=== PATIENT | female | born 1950 | race Caucasian/White ===

== ENCOUNTER 2023-06-04 14:33 | Emergency (ER) | payer MEDICARE, OTHER, SELFPAY ==
[2023-06-04 14:42] VITALS: BP 183/109
--- NOTE | 2023-06-04 15:18 | ED.GENMED ---
History of Present Illness
General
Chief Complaint: Head Injury
Source: patient
Exam Limitations: none
Time Seen by Provider: 06/04/23 15:03
Nursing documentation reviewed up to this point in time: agreed with
Travel History
Have you had any contact with someone who has COVID-19?: No
Do you have any symptoms of coronavirus? Fever > 100 degrees, chills, cough, shortness of breath, sore throat, loss of taste or smell, muscle aches, or headache?: No
History of Present Illness
History of Present Illness:
Patient is a 72-year-old who presents to the ER for evaluation of fall. Patient reports she was putting a vacuum away when she tripped on her downstairs step and fell landing on a wood floor. She hit the left side of her head. She denies loss of
consciousness. She got herself up. She complains of soreness to left forehead. She reports she recently had cervical laminectomy last surgery was February neck feels sore but denies any actual pain. She has chronic numbness and tingling to
fingers and toes this is not new. She is on Darleen aspirin once a day no other blood thinners. She denies any nausea vomiting. She denies any other upper or lower extremity pain/injury.
Past History
Past History
ED Past Medical History: Cancer (Breast), HTN, Hypercholesterolemia, Valvular disease and Other (Arthritis, retinal detachment)
ED Past Surgical History: Cardiac, (X4, and D&C in 1986) and Orthopedic (History laminectomy October 2012. Chronic back pain. Office 2012 had a discectomy and developed abscess and sepsis. She's had a left shoulder replacement, left knee
replacement. Is scheduled for a right knee replacement. She has to have her right shoulder replaced.)
Social History
Tobacco: Former smoker
Alcohol: None
Personal:
Living: with family
Employment: Not employed
Review of Systems
Review of Systems
Allergies reviewed?: Yes
All Other Systems: ROS reviewed and negative except as documented in HPI and ROS
Constitutional: Reports no symptoms; Denies fever, fatigue or chills
EENT: Reports no symptoms
Respiratory: Reports no symptoms
Cardiac: Reports no symptoms
ABD/GI: Reports no symptoms; Denies nausea or vomiting
Musculoskeletal: Reports neck pain
Skin: Reports no symptoms
Neurological: Reports other (sore to left forehead ); Denies headache
Hematologic/Lymphatic: Reports no symptoms
Psychiatric: Reports no symptoms
Phy Exam
General Physical Exam
General Presentation: no apparent distress
General age: appears stated age
General Skin: warm and dry
General Habitus: normal
General Mental: alert
General Hydration: appears well hydrated
Eye Exam
Eye Exam: PERRL, EOMI and other (No bony orbital tenderness no step-offs or crepitus)
Eye Exam General: PERRL: bilateral and EOM intact: bilateral
Pupil Exam: Bilateral: round and reactive
Neurological Exam
Neurological Exam: alert, oriented x3 and other (ambulatory steady gait )
Musculoskeletal Exam
Musculoskeletal Exam: full ROM and other (Left forehead hematoma, posterior surgical scar, old appearing to neck no bony cervical spine midline tenderness full range of motion upper lower extremities)
Skin Exam
Skin Exam: normal color and warm/dry
Course
Orders/Labs/Results
Orders:
Orders
06/04/23 15:16
CT Head W/o Iv Contrast Urgent
Comment:
Reason For Exam: FALL left forehead hematoma
06/04/23 15:17
CT Cervical Spine W/o Iv Contr Urgent
Comment:
Reason For Exam: trauma
Vital Signs
Initial and Last Documented VS:
Initial Vital Signs
Temp Pulse Resp BP Pulse Ox
98.2 F 96 20 183/109 100
06/04/23 14:42 06/04/23 14:42 06/04/23 14:42 06/04/23 14:42 06/04/23 14:42
Last Documented Vital Signs
Temp Pulse Resp BP Pulse Ox
98.2 F 96 20 183/109 100
06/04/23 14:42 06/04/23 14:42 06/04/23 14:42 06/04/23 14:42 06/04/23 14:42
MDM/Problems Addressed
Differential Diagnosis Includes:
Not limited to intracranial hemorrhage, skull fracture, hematoma contusion cervical strain less likely fracture
MDM/Problems Addressed:
Symptoms are consistent with frontal forehead hematoma, head injury. Patient is not on blood thinners no loss of consciousness CT head and cervical spine unremarkable. Patient has chronic degenerative changes in cervical spine and postoperative
findings s/p posterior laminectomy.
Chronic conditions affecting care:
Posterior laminectomy
*Radiology
Radiology exam reviewed: radiology read reviewed
*Pulse Oximetry
Patient hypoxic: no
*Critical Care Note
Total Time (30-74mins, 75-104mins- exclusive of procedures): Not Applicable
ED Attending Note
-
Portions of this chart may have been created with voice recognition software.� Occasional wrong word or��sound alike� substitutions may have occurred due to the inherent limitations of voice recognition software.
Discharge Plan
Departure
Patient Disposition: Home (Routine Discharge)
Date of Disposition: 06/04/23
Time of Disposition: 17:15
Patient with high blood pressure during this ER visit?: Yes
Condition: Fair
Covid-19: Not Applicable
Discharge Problem:
Head injury, Hematoma
Instructions: Head Injury in Adults (DC), Contusion (DC), BLOOD PRESSURE
Prescriptions:
No Action
levothyroxine 100 MCG tablet
100 mcg PO DAILY AT 0700
zinc 50 mg Tablet
50 mg PO DAILY Qty: 0
omeprazole magnesium [Prilosec OTC] 20 MG tablet,delayed release (DR/EC)
20 mg PO DAILY
ICaps AREDS [id number] Capsule
1 cap PO DAILY Qty: 0
ascorbic acid (vitamin C) [Vitamin C] 1,000 MG tablet
1,000 mg PO DAILY
amitriptyline 10 MG tablet
10 mg PO HS
lorazepam [Ativan] 0.5 mg Tablet
0.5 mg PO 5/D PRN (Reason: anxiety )
Rx Instructions:
pt states that she can have it 5 times a day
aspirin 81 mg Tablet,Delayed Release (Dr/Ec)
81 mg PO DAILY
amitriptyline 50 mg tablet
50 mg PO HS
amlodipine [Norvasc] 10 mg Tablet
10 mg PO DAILY
acetaminophen 325 MG tablet
650 mg PO Q4HPRN PRN (Reason: HEADACHES)
omega-3 fatty acids Capsule
PO
Rx Instructions:
unk mg
turmeric 400 mg Capsule
400 mg PO DAILY
Rx Instructions:
unk mg
quercetin 500 mg Capsule
500 mg PO DAILY
Rx Instructions:
unk mg
atorvastatin 20 mg Tablet
40 mg PO QPM Qty: 30 0RF
clopidogrel 75 mg Tablet
75 mg PO DAILY Qty: 20 0RF
Referrals:
Ginny Salmeron MD [Family Provider] -
Activity Restrictions/Additional Instructions:
Ice affected area for first 24 hours at times of time several times a day. Follow-up with family doctor in the next 2 days for reevaluation. Return if any worsening of symptoms. You may alternate between ibuprofen and Tylenol as needed
Interventions
Interventions:
*Risk Screen - Suicide Last Done: 06/04/23 16:55
*General Assessment Last Done: 06/04/23 16:55
*Neglect/Abuse Screening Last Done: 06/04/23 16:55
ED- Neurological Assessment Last Done: 06/04/23 16:55
ED-Skin Assessment Last Done: 06/04/23 16:56
[2023-06-04 17:22] VITALS: BP 185/105
== END 2023-06-04 17:30 | disposition home or self-care (01) ==
LOC: EMR 14:33
PROVIDERS: EMERGENCY PHYSICIAN Emergency Medicine; FAMILY PHYSICIAN Internal Medicine
DX: S00.03XA Contusion of scalp, initial encounter (principal); S09.90XA Unspecified injury of head, initial encounter; W01.0XXA Fall on same level from slipping, tripping and stumbling without subsequent striking against object, initial encounter; M47.812 Spondylosis without myelopathy or radiculopathy, cervical region; I10 Essential (primary) hypertension; Z79.82 Long term (current) use of aspirin; Z87.891 Personal history of nicotine dependence
CPT/HCPCS: 99284; 70450; 72125

== ENCOUNTER → 2023-06-08 15:57 | Outpatient (REF) | payer MEDICARE, OTHER, SELFPAY ==
[2023-06-08 16:37] LABS: Blood Urea Nitrogen 26 mg/dl (7-17); Calcium 9.7 mg/dl (8.4-10.2); Carbon Dioxide 24 mmol/L (22-30); Chloride 103 mmol/L (98-107); Glucose 90 mg/dl (70-99); Potassium 4.4 mmol/L (3.5-5.1); Sodium 136 mmol/L (135-145); eGFR > 60.00
== END ==
LOC: REG 15:57
PROVIDERS: ATTENDING PHYSICIAN Family Medicine
DX: R31.0 Gross hematuria (principal)
CPT/HCPCS: 36415; 80048

== ENCOUNTER → 2023-06-09 11:54 | Outpatient (REF) | payer MEDICARE, OTHER, SELFPAY | LOC: HWRAD 11:54 | PROVIDERS: ATTENDING PHYSICIAN Family Medicine; FAMILY PHYSICIAN Internal Medicine | DX: R31.0 Gross hematuria (principal); R10.9 Unspecified abdominal pain | CPT/HCPCS: 74177; Q9967 ==

== ENCOUNTER → 2023-08-10 12:02 | Outpatient (REF) | payer MEDICARE, OTHER, SELFPAY | LOC: RAD 12:02 | PROVIDERS: ATTENDING PHYSICIAN Obstetrics & Gynecology Gynecologic Oncology; FAMILY PHYSICIAN Internal Medicine; REFERRING PHYSICIAN Radiology Radiation Oncology | DX: C54.1 Malignant neoplasm of endometrium (principal) | CPT/HCPCS: 71260; Q9967 ==

== ENCOUNTER → 2023-12-21 07:37 | Outpatient (REF) | payer MEDICARE, OTHER, SELFPAY | LOC: MRI 07:37 | PROVIDERS: ATTENDING PHYSICIAN Internal Medicine Medical Oncology; FAMILY PHYSICIAN Internal Medicine | DX: C54.1 Malignant neoplasm of endometrium (principal); G44.89 Other headache syndrome | CPT/HCPCS: 70553; A9575 ==

== ENCOUNTER → 2024-01-16 07:33 | Outpatient (REF) | payer MEDICARE, OTHER, SELFPAY ==
[2024-01-16 08:20] LABS: % Basophils 0.8 % (0-2); % Eosinophils 7.4 % (0-6); % Immature Granulocytes 0.2 % (0-0.5); % Lymphocytes 26.8 % (20.5-51.1); % Monocytes 8.9 % (1.7-9.3); % Neutrophils 55.9 % (42.2-75.2); Absolute Eosinophils 0.4 10^3/uL (0-0.7); Absolute Lymphocytes 1.3 10^3/uL (1.2-3.4); Absolute Monocytes 0.4 10^3/uL (0.1-0.6); Absolute Neutrophils 2.6 10^3/uL (1.4-6.5); Hematocrit 38.5 % (37.0-47.0); Hemoglobin 12.8 g/dL (12.0-16.0); Mean Corp Hgb Conc. 33.2 g/dL (33.0-37.0); Mean Corpuscular Hgb 31.2 pg (27.0-31.0); Mean Corpuscular Volume 93.9 fL (81.0-99.0); Mean Platelet Volume 9.7 fL (7.4-10.4); Nucleated Red Blood Cells % 0 %; Platelet Count 231 10^3/uL (130-400); Red Cell Dist. Width 11.9 % (11.5-14.5); White Blood Cell Count 4.7 10^3/uL (4.8-10.8)
[2024-01-16 09:08] LABS: ALT (SGPT) 33 U/L (0-35); AST (SGOT) 41 U/L (14-36); Albumin 4.5 g/dl (3.5-5.0); Alkaline Phosphatase 111 U/L (38-126); Blood Urea Nitrogen 20 mg/dl (7-17); Calcium 9.6 mg/dl (8.4-10.2); Carbon Dioxide 27 mmol/L (22-30); Chloride 105 mmol/L (98-107); Glucose 95 mg/dl (70-99); HDL Cholesterol 68 mg/dl; LDL Cholesterol, Calculated 146 mg/dl; Potassium 4.5 mmol/L (3.5-5.1); Sodium 142 mmol/L (135-145); Total Bilirubin 0.4 mg/dl (0.2-1.3); Total Cholesterol 228 mg/dl (50-199); Triglyceride 71 mg/dl (10-149); Very Low Density Lipoprotein 14 mg/dl (0-30); eGFR > 60.00
[2024-01-16 09:17] LABS: TSH Reflex To Free T4 2.38 uIU/ml (0.47-4.68)
== END ==
LOC: REG 07:33
PROVIDERS: ATTENDING PHYSICIAN Internal Medicine
DX: I10 Essential (primary) hypertension (principal); E78.2 Mixed hyperlipidemia; E03.9 Hypothyroidism, unspecified
CPT/HCPCS: 36415; 80053; 80061; 84443; 85025

== ENCOUNTER → 2024-03-02 12:19 | Outpatient (REF) | payer MEDICARE, OTHER, SELFPAY | LOC: RCS 12:19 | PROVIDERS: ATTENDING PHYSICIAN Internal Medicine Cardiovascular Disease; FAMILY PHYSICIAN Internal Medicine | DX: Z95.2 Presence of prosthetic heart valve (principal); E78.2 Mixed hyperlipidemia; I10 Essential (primary) hypertension | CPT/HCPCS: 93306 ==

== ENCOUNTER 2024-10-09 20:35 | Emergency (ER) | payer MEDICARE, OTHER, SELFPAY ==
[2024-10-09 20:38] VITALS: BP 178/92
[2024-10-09 21:08] LABS: % Basophils 0.5 % (0-2); % Eosinophils 1.9 % (0-6); % Immature Granulocytes 0.4 % (0-0.5); % Lymphocytes 19.5 % (20.5-51.1); % Monocytes 9.7 % (1.7-9.3); Absolute Basophils 0.1 10^3/uL (0-0.2); Absolute Eosinophils 0.2 10^3/uL (0-0.7); Absolute Lymphocytes 2.1 10^3/uL (1.2-3.4); Absolute Neutrophils 7.2 10^3/uL (1.4-6.5); Hematocrit 35.8 % (37.0-47.0); Hemoglobin 11.5 g/dL (12.0-16.0); Mean Corp Hgb Conc. 32.1 g/dL (33.0-37.0); Mean Corpuscular Hgb 28.8 pg (27.0-31.0); Mean Corpuscular Volume 89.7 fL (81.0-99.0); Nucleated Red Blood Cells % 0 %; Platelet Count 223 10^3/uL (130-400); Red Blood Cell Count 3.99 10^6/uL (4.20-5.40); Red Cell Dist. Width 14.3 % (11.5-14.5); White Blood Cell Count 10.5 10^3/uL (4.8-10.8)
[2024-10-09 21:38] LABS: ALT (SGPT) 28 U/L (0-35); AST (SGOT) 34 U/L (14-36); Albumin 4.2 g/dl (3.5-5.0); Alkaline Phosphatase 126 U/L (38-126); Blood Urea Nitrogen 18 mg/dl (7-17); Calcium 9.1 mg/dl (8.4-10.2); Carbon Dioxide 27 mmol/L (22-30); Chloride 108 mmol/L (98-107); Glucose 134 mg/dl (70-99); Sodium 141 mmol/L (135-145); Total Bilirubin 0.4 mg/dl (0.2-1.3); Total Protein 6.7 g/dl (6.3-8.2); eGFR > 60.00
[2024-10-09 21:39] LABS: Lipase 127 U/L (23-300)
[2024-10-10 00:34] VITALS: BP 173/76; BMI 36.3
--- NOTE | 2024-10-10 00:47 | ED.GENMED ---
History of Present Illness
General
Chief Complaint: Abdominal Pain
Source: patient
Exam Limitations: none
Time Seen by Provider: 10/10/24 00:34
History of Present Illness
History of Present Illness:
See MDM
Past History
Past History
ED Past Medical History: Cancer (Breast), HTN, Hypercholesterolemia, Valvular disease and Other (Arthritis, retinal detachment)
ED Past Surgical History: Cardiac, (X4, and D&C in 1986) and Orthopedic (History laminectomy October 2012. Chronic back pain. Office 2012 had a discectomy and developed abscess and sepsis. She's had a left shoulder replacement, left knee
replacement. Is scheduled for a right knee replacement. She has to have her right shoulder replaced.)
Social History
Tobacco: Former smoker
Alcohol: None
Personal:
Living: with family
Employment: Not employed
Phy Exam
Physical Exam
Physical Exam:
See MDM
Course
Orders/Labs/Results
Orders:
Orders
10/09/24 20:59
Complete Blood Count/With Diff Urgent
Comprehensive Metabolic Panel Urgent
Lipase Urgent
10/10/24 00:33
Urinalysis Reflex To Culture Urgent
Date Specimen was Collected: 10/10/24
Time Specimen was Collected: 00:25
Urine Microscopic Reflex Cult Urgent
Urine Culture Urgent
JUDE Source: U
Specimen Description:
Date Specimen was Collected: 10/10/24
Time Specimen was Collected: 00:25
10/10/24 00:43
CT Abd/pel Without Iv Or Oral Urgent
Comment:
Reason For Exam: R flank pain
Cyclobenzaprine HCl [Flexeril] 10 mg PO NOW STA
Ibuprofen [Motrin] 600 mg PO NOW STA
Abnormal Lab Results
10/09/24 10/10/24
20:59 00:33
RBC 3.99 L 10^6/uL
(4.20-5.40)
Hgb 11.5 L g/dL
(12.0-16.0)
Hct 35.8 L %
(37.0-47.0)
MCHC 32.1 L g/dL
(33.0-37.0)
Absolute Neuts (auto) 7.2 H 10^3/uL
(1.4-6.5)
Absolute Monos (auto) 1.0 H 10^3/uL
(0.1-0.6)
Lymphocytes % 19.5 L %
(20.5-51.1)
Monocytes % 9.7 H %
(1.7-9.3)
Chloride 108 H mmol/L
(98-107)
BUN 18 H mg/dl
(7-17)
Glucose 134 H mg/dl
(70-99)
Leukocyte Esterase Rfl 2+ A
(Negative)
Urine RBC 3-6 A /HPF
(0-2)
Urine WBC (Reflex) 16-20 A /HPF
(0-5)
Urine Bacteria (Reflex) Few A
(Negative)
10/09/24 20:59
10/09/24 20:59
Vital Signs
Initial and Last Documented VS:
Initial Vital Signs
Temp Pulse Resp BP Pulse Ox
98.6 F 94 20 178/92 99
10/09/24 20:38 10/09/24 20:38 10/09/24 20:38 10/09/24 20:38 10/09/24 20:38
Last Documented Vital Signs
Temp Pulse Resp BP Pulse Ox
98.6 F 87 18 173/76 98
10/09/24 20:38 10/10/24 00:34 10/10/24 00:34 10/10/24 00:34 10/10/24 00:49
MDM/Problems Addressed
Differential Diagnosis Includes:
Note:
CHIEF COMPLAINT(S)
Abdominal and back pain.
HISTORY OF PRESENT ILLNESS
The patient is a 73-year-old female presenting with abdominal and back pain that developed after performing an exercise called 'the butterfly' during physical therapy. She noted an increase in pain while at home. The pain became significant over the
past weekend, making it difficult for her to bend over and swim. The patient describes the pain as localized with point tenderness upon palpation, and denies any skin changes such as bruising. The patient exercises regularly by swimming. She has not
taken any pain medication or muscle relaxants and is cautious about potential side effects such as dizziness.
The patient has a history of endometrial cancer for which she underwent surgery, chemotherapy, and radiation. She experiences mild allergic reactions to IV contrast, resulting in lip and tongue numbness, and has therefore been given steroids and
diphenhydramine, along with CAT scans without contrast for cancer surveillance. She is currently not on any blood thinners except for low-dose aspirin.
PHYSICAL EXAM
General: Well appearing and non-toxic
HEENT: protecting airway
Neck: appears supple
CV: No evidence of cyanosis
Resp: No accessory muscle use
Abd: Non-distended. Point tenderness to muscular of right flank. No rebound
Extremities: No deformities
Neuro: alert
Psych: Normal affect
Skin: Intact
PLAN
- A CAT scan without contrast will be performed to rule out acute abdominal conditions such as appendicitis, cholecystitis, and nephrolithiasis.
- Consider offering a trial dose of muscle relaxant, such as cyclobenzaprine, to assess its effect in a controlled environment.
- Administration of a non-steroidal anti-inflammatory agent (NSAID), like motrin, is discussed as a potential option for pain management.
- Continuous reassurance about the likelihood of non-serious pathology based on current examination and history. The need for follow-up if symptoms worsen is emphasized.
DIFFERENTIAL DIAGNOSIS
The Differential Diagnosis includes, in no particular order and is not limited to:
- Muscular strain
- Lumbar spine pathology
- Abdominal wall hernia
- Appendicitis
- Cholecystitis
- Nephrolithiasis
- Gastrointestinal pathology such as diverticulitis
- Aortic aneurysm
- Pancreatitis
- Metastatic disease recurrence
SUMMARY OF ENCOUNTER
The patient, a 73-year-old female, presented to the emergency department with abdominal and back pain that developed after performing an exercise called 'the butterfly' during physical therapy. The pain worsened over the weekend, impacting her
ability to bend over and swim. She described the pain as localized with point tenderness upon palpation, and there were no skin changes such as bruising. Given her history of endometrial cancer and current symptoms, a CT scan was conducted to rule
out acute intra-abdominal conditions.
DISPOSITION
The patient was reassessed and, after administration of ketorolac (referred to as Tore-Dol) and a muscle relaxant, she reported feeling better. She expressed comfort with being discharged home.
ASSESSMENT
The pain appears to be likely due to a muscle strain. The CT scan did not reveal any acute intra-abdominal pathology.
MANAGEMENT OF THE PATIENTS CARE WAS DISCUSSED WITH
There was a discussion with the patient regarding the CT findings and the absence of acute intra-abdominal conditions. Treatment focused on managing the pain as a probable muscle strain.
PLAN
The patient will be discharged with prescriptions for muscle relaxants and advised to use NSAIDs as needed for pain management. Follow-up with her primary care doctor was advised, along with education on monitoring for concerning symptoms.
INDEPENDENT REVIEW OF LABS AND INTERPRETATION OF TESTS
My independent interpretation of the CT scan is that it shows no acute intra-abdominal pathology, supporting the assessment of muscular strain.
ADDITIONAL TESTING AND IMAGING CONSIDERED
A CT scan was ordered to rule out serious conditions like appendicitis, cholecystitis, and nephrolithiasis given the patients symptoms and history.
PATIENT EDUCATION AND COUNSELING
The patient was educated on the nature of her pain, most likely due to a muscular strain, and was reassured based on the normal CT findings. She was instructed to follow up with her primary care doctor and provided with instructions on signs that
should prompt urgent medical attention.
FOLLOW-UP INSTRUCTIONS
The patient was advised to follow up with her primary care doctor and to return to the emergency department if her symptoms worsened or new symptoms arose.
MEDICATION RECONCILIATION
Prescriptions were provided for muscle relaxants, and the use of NSAIDs as needed for pain was discussed.
PATHOLOGIES TO CONSIDER
- Muscular strain (likely cause of symptoms)
- Lumbar spine pathology
- Abdominal wall hernia
- Appendicitis
- Cholecystitis
- Nephrolithiasis
- Gastrointestinal pathology such as diverticulitis
- Aortic aneurysm
- Pancreatitis
- Metastatic disease recurrence
*Pulse Oximetry
SaO2: 98
Oxygen Mode of Delivery: Room air
Patient hypoxic: no
*Critical Care Note
Total Time (30-74mins, 75-104mins- exclusive of procedures): Not Applicable
ED Attending Note
-
Portions of this chart may have been created with voice recognition software.� Occasional wrong word or��sound alike� substitutions may have occurred due to the inherent limitations of voice recognition software.
Discharge Plan
Departure
Patient Disposition: Home (Routine Discharge)
Date of Disposition: 10/10/24
Time of Disposition: 03:52
Patient with high blood pressure during this ER visit?: No
Discharge Problem:
Strain of abdominal muscle
Prescriptions:
New
metaxalone 800 mg tablet
800 mg PO HSPRN PRN (Reason: muscle pain) Qty: 14 0RF
No Action
levothyroxine 100 MCG tablet
100 mcg PO DAILY AT 0700
zinc 50 mg Tablet
50 mg PO DAILY Qty: 0
omeprazole magnesium [Prilosec OTC] 20 MG tablet,delayed release (DR/EC)
20 mg PO DAILY
ICaps AREDS [id number] Capsule
1 cap PO DAILY Qty: 0
ascorbic acid (vitamin C) [Vitamin C] 1,000 MG tablet
1,000 mg PO DAILY
amitriptyline 10 MG tablet
10 mg PO HS
lorazepam [Ativan] 0.5 mg Tablet
0.5 mg PO 5/D PRN (Reason: anxiety )
Rx Instructions:
pt states that she can have it 5 times a day
aspirin 81 mg Tablet,Delayed Release (Dr/Ec)
81 mg PO DAILY
amitriptyline 50 mg tablet
50 mg PO HS
amlodipine [Norvasc] 10 mg Tablet
10 mg PO DAILY
acetaminophen 325 MG tablet
650 mg PO Q4HPRN PRN (Reason: HEADACHES)
omega-3 fatty acids Capsule
PO
Rx Instructions:
unk mg
turmeric 400 mg Capsule
400 mg PO DAILY
Rx Instructions:
unk mg
quercetin 500 mg Capsule
500 mg PO DAILY
Rx Instructions:
unk mg
atorvastatin 20 mg Tablet
40 mg PO QPM Qty: 30 0RF
clopidogrel 75 mg Tablet
75 mg PO DAILY Qty: 20 0RF
Referrals:
UNKNOWN - PT DOES,NOT KNOW [Unknown Provider]
Activity Restrictions/Additional Instructions:
Please return for any worsening symptoms.
You may return at any time if you have further concerns.
Please follow up with your doctor at the first available appointment, preferably this week.
Thank you for choosing [facility].
Interventions
Interventions:
*Risk Screen - Suicide Last Done: 10/09/24 20:38
*General Assessment Last Done: 10/09/24 20:38
*Neglect/Abuse Screening Last Done: 10/09/24 20:38
*ED COVID-19 Vaccine History Last Done: 10/09/24 20:38
NP-Eauprq-Tqrfqcctgi Assessment Last Done: 10/10/24 00:34
Discharge Date and Time
Print Language: WELSH
[2024-10-10 00:53] LABS: Urine Albumin Negative (Neg - Trace); Urine Bilirubin Negative (Negative); Urine Character Clear (Clear); Urine Color Yellow; Urine Glucose Negative (Negative); Urine Ketone Negative (Negative); Urine Leukocyte 2+ (Negative); Urine Nitrite Negative (Negative); Urine Occult Blood Negative (Negative); Urine Specific Gravity 1.025 (<1.030); Urine Urobilinogen Negative (Neg - 1+)
[2024-10-10] MEDS: MOTRIN 600 MG PO (01:05)
[2024-10-10] MEDS: FLEXERIL 10 MG PO (01:05)
[2024-10-10 01:25] LABS: Urine Squamous Cell >30 /LPF (Few)
[2024-10-10 01:26] LABS: Urine Bacteria Few (Negative); Urine White Cell 16-20 /HPF (0-5)
== END 2024-10-10 04:06 | disposition home or self-care (01) ==
LOC: EMR 20:35
PROVIDERS: Emergency Medicine; EMERGENCY PHYSICIAN Student in an Organized Health Care Education/Training Program; FAMILY PHYSICIAN Internal Medicine
DX: S39.011A Strain of muscle, fascia and tendon of abdomen, initial encounter (principal); X58.XXXA Exposure to other specified factors, initial encounter; I10 Essential (primary) hypertension; E78.00 Pure hypercholesterolemia, unspecified; I38 Endocarditis, valve unspecified; G89.29 Other chronic pain; M54.9 Dorsalgia, unspecified; M19.90 Unspecified osteoarthritis, unspecified site; Z79.82 Long term (current) use of aspirin; Z96.612 Presence of left artificial shoulder joint; Z96.652 Presence of left artificial knee joint; Z87.891 Personal history of nicotine dependence; Z85.3 Personal history of malignant neoplasm of breast; Z85.42 Personal history of malignant neoplasm of other parts of uterus; Z92.3 Personal history of irradiation; Z92.21 Personal history of antineoplastic chemotherapy; Z88.1 Allergy status to other antibiotic agents; Z88.5 Allergy status to narcotic agent
CPT/HCPCS: 99284; 74176; 80053; 81003; 81015; 83690; 85025; 87086

== ENCOUNTER → 2025-02-22 13:24 | Outpatient (REF) | payer MEDICARE, OTHER, SELFPAY ==
[2025-02-22 15:37] LABS: INR 0.91; PT 12.5 Sec (11.4-14.6)
[2025-02-22 15:38] LABS: APTT 28.2 Sec (23.4-35.0)
[2025-02-22 16:12] LABS: Hematocrit 39.7 % (37.0-47.0); Hemoglobin 12.9 g/dL (12.0-16.0); Mean Corp Hgb Conc. 32.5 g/dL (33.0-37.0); Mean Corpuscular Volume 88.0 fL (81.0-99.0); Nucleated Red Blood Cells % 0 %; Platelet Count 281 10^3/uL (130-400); Red Cell Dist. Width 14.1 % (11.5-14.5)
== END ==
LOC: REG 13:24
PROVIDERS: ATTENDING PHYSICIAN Nurse Practitioner Family
DX: R23.3 Spontaneous ecchymoses (principal)
CPT/HCPCS: 36415; 85025; 85610; 85730

== ENCOUNTER → 2025-03-01 07:40 | Outpatient (REF) | payer MEDICARE, OTHER, SELFPAY ==
[2025-03-01 08:31] LABS: Hematocrit 38.9 % (37.0-47.0); Hemoglobin 12.7 g/dL (12.0-16.0); Mean Corp Hgb Conc. 32.6 g/dL (33.0-37.0); Mean Corpuscular Volume 85.9 fL (81.0-99.0); Nucleated Red Blood Cells % 0 %; Platelet Count 263 10^3/uL (130-400); Red Cell Dist. Width 14.1 % (11.5-14.5)
[2025-03-01 09:16] LABS: ALT (SGPT) 29 U/L (0-35); AST (SGOT) 31 U/L (14-36); Albumin 4.2 g/dl (3.5-5.0); Alkaline Phosphatase 131 U/L (38-126); Blood Urea Nitrogen 20 mg/dl (7-17); C-Reactive Protein 14.70 mg/L (0.0-10.00); Calcium 8.9 mg/dl (8.4-10.2); Carbon Dioxide 29 mmol/L (22-30); Chloride 103 mmol/L (98-107); Glucose 91 mg/dl (70-99); HDL Cholesterol 67 mg/dl; LDL Cholesterol, Calculated 134 mg/dl; Potassium 4.7 mmol/L (3.5-5.1); Sodium 137 mmol/L (135-145); Total Protein 7.0 g/dl (6.3-8.2); Very Low Density Lipoprotein 15 mg/dl (0-30); eGFR > 60.00
[2025-03-04 01:34] LABS: ANA, IgG Reflex to HEp-2 None Detected (None Detected)
== END ==
LOC: REG 07:40
PROVIDERS: ATTENDING PHYSICIAN Internal Medicine
DX: I10 Essential (primary) hypertension (principal); E78.2 Mixed hyperlipidemia; E66.9 Obesity, unspecified; E03.9 Hypothyroidism, unspecified; T14.8XXA Other injury of unspecified body region, initial encounter
CPT/HCPCS: 36415; 80053; 80061; 84443; 85025; 85652; 86038; 86140